=== PATIENT | female | born 1980 | race Two or more races ===

== ENCOUNTER 2020-02-08 06:40 | Day surgery (SDC) | payer OTHER ==
[~2020-02-08 06:40] MED LIST: LEXAPRO5 MG PO; TOPROL XL25 M1 PO
== END 2020-02-08 11:20 | disposition home or self-care (01) ==
LOC: CIR.AMB 06:40
PROVIDERS: ATTEND Obstetrics & Gynecology
DX: Z30.2 Encounter for sterilization (principal); Z20.828 Contact with and (suspected) exposure to other viral communicable diseases